=== PATIENT | male | born 1970 | race Caucasian/White ===

== ENCOUNTER 2021-11-20 10:53 | Emergency (ER) | payer SELFPAY ==
[~2021-11-20] VITALS: Ht 177.8 cm; Wt 79.4 kg
[2021-11-20] MEDS ORDERED: IBUPROFEN600 MG PO (14:35)
== END 2021-11-20 14:52 | disposition home or self-care (01) ==
LOC: ER 11:14
DX: R60.9 Edema, unspecified (principal); M79.89 Other specified soft tissue disorders
CPT/HCPCS: 93971; 99283